=== PATIENT | female | born 1990 | race Two or more races ===

== ENCOUNTER 2018-02-24 11:13 | Emergency (ER) | payer SELFPAY ==
[~2018-02-24] VITALS: Ht 154.9 cm; Wt 60.3 kg
[2018-02-24 11:33] VITALS: BP 103/63
[2018-02-24 11:55] LABS: APPEARANCE,URINE CLEAR; BILIRUBIN, URINE NEGATIVE (NEGATIVE); GLUCOSE, URINE (UA) NEGATIVE (NEGATIVE); KETONES,URINE NEGATIVE (NEGATIVE); LEUKOCYTE ESTERASE ,URINE 1+ (NEGATIVE); NITRITE,URINE NEGATIVE (NEGATIVE); PH,URINE 7 (4.5-8.0); PROTEIN,URINE NEGATIVE (NEGATIVE); UROBILINOGEN,URINE NORMAL MG/DL (0.0-1.0)
[2018-02-24 11:57] LABS: COLOR,URINE YELLOW
--- NOTE | 2018-02-24 12:17 | Emergency Room Report ---
History of Present Illness General Chief Complaint: Abdominal Pain Source: Patient Present Illness HPI 27 y.o. F with no sig pmhx, here c/o 3 days of supra pubic pain, bilateral flank pain radiating to supra pubic and dysuria. pt went to another clinic yesterday and was started on macrobid bid for 7days. pt is here today c/o continuous intermittent supra pubic pain and flank pain, feeling chills, denies n/v/d/c/dizziness. rates the pain 12/19, has not taken pain meds, she further denies hematuria, hx of renal stone, is sexually active but denying vaginal ulcers/pruritis, dc. Allergies: Coded Allergies: No Known Allergies (Unverified , 02/24/18) Patient History Past Medical History: see triage record Past Surgical History: none Pertinent Family History: unable to obtain Now: No Immunizations: UTD Reviewed Nursing Documentation: PMH: Agreed; PSxH: Agreed Nursing Documentation-PMH Past Medical History: No Stated History Review of Systems All Other Systems: negative except mentioned in HPI Physical Exam Vital Signs Date Time Temp Pulse Resp B/P (MAP) Pulse Ox O2 Delivery O2 Flow Rate FiO2 02/24/18 11:26 97.9 59 18 103/63 99 Room Air 97.9 Sp02 EP Interpretation: reviewed General Appearance: normal inspection, well appearing, alert, GCS 15, mild distress Head: normocephalic, atraumatic Eyes: bilateral eye normal inspection, bilateral eye PERRL ENT: normal ENT inspection Neck: normal inspection, full range of motion, supple Respiratory: normal inspection, chest non-tender, lungs clear, normal breath sounds, no rhonchi, no respiratory distress, no retraction Cardiovascular #1: normal inspection, normal peripheral pulses, regular rate, rhythm, no edema, no gallop, no murmur, no rub Cardiovascular #2: 2+ radial (R), 2+ radial (L) Gastrointestinal: non tender, soft, no mass, no organomegaly, no bruit, non- distended, no hernia, no pulsatile mass, no rebound, guarding - on both right and left lower quadrants and suprapubic, other - no CVAT Rectal: deferred Genitourinary: deferred Musculoskeletal: normal inspection, back normal Neurologic: normal inspection, alert, oriented x3, responsive Psychiatric: normal inspection, judgement/insight normal, memory normal Skin: normal inspection, normal color, no rash, warm/dry Lymphatic: normal inspection, no adenopathy Medical Decision Making PA Attestation All diagnosis, orders and tx plans were discussed with my attending physician Dr. Alonso Reaction to Intervention: Improved Diagnostic Impression: Primary Impression: UTI (urinary tract infection) Additional Impression: Flank pain ER Course 27 y.o. F with no sig pmhx, here c/o 3 days of supra pubic pain, bilateral flank pain radiating to supra pubic and dysuria. pt went to another clinic yesterday and was started on macrobid bid for 7days. pt is here today c/o continuous intermittent supra pubic pain and flank pain, feeling chills, denies n/v/d/c/dizziness. rates the pain 12/19, has not taken pain meds, she further denies hematuria, hx of renal stone, is sexually active but denying vaginal ulcers/pruritis, dc. Ddx considered but are not limited to UTI, pylonephritis, renal stone Vital signs: are WNL, pt. is afebrile H&PE are most consistent with UTI ORDERS: UA and urine HCG, continue with Macrobid, also take Pyridium for 2 days to help with pain, increase oral hydration ED INTERVENTIONS: None required at this time. negative urine HCG, 1+ leuk and 1+ occult blood in UA Lab Results Impression UTI uncomplicated Last Vital Signs Date Time Temp Pulse Resp B/P (MAP) Pulse Ox O2 Delivery O2 Flow Rate FiO2 02/24/18 11:33 97.9 59 18 103/63 99 Room Air 97.9 Status: improved Disposition: HOME, SELF-CARE Condition: Stable Scripts Phenazopyridine Hcl* (PYRIDIUM*) 100 Mg Tablet 100 MG ORAL THREE TIMES A DAY for 2 Days, #6 TAB Prov: Cira [email or web address] 02/24/18 Additional Instructions: increase oral hydration, finish antinbiotics and take pain medication as directed. if symptoms worsen, fever/chills, nausea vomiting return to ED Cira Olivier Feb 24, 2018 12:17
[2018-02-24] MEDS ORDERED: PHENAZOPYRIDIN100 MG ORAL (12:53)
[2018-02-24 13:00] VITALS: BP 112/70
== END 2018-02-24 13:00 | disposition home or self-care (01) ==
LOC: EMR 12:46
DX: N39.0 Urinary tract infection, site not specified (principal)
CPT/HCPCS: 81003; 81025; 99283